=== PATIENT | male | born 1950 | race Caucasian/White ===

== ENCOUNTER 2018-01-18 06:12 | Emergency (ER) | payer MEDICARE ==
[2018-01-18] MEDS ORDERED: NS 0.9% 1000 ML* 1,000 ML IV ONE (06:38)
[2018-01-18] MEDS ORDERED: Morphine VIAL* 4 MG/ML VIAL (1 ml vial) IV ONE (06:40)
[2018-01-18] MEDS ORDERED: PROCHLORPERAZINE INJ 5 MG/ML 2 ML VIAL IV ONE (06:41)
[2018-01-18 07:07] LABS: ABS Basophils 0 10^3/ul (0-0.2); ABS Eosinophils 0 10^3/ul (0-0.6); ABS Monocytes 0.2 10^3/ul (0-0.8); ABS Neutrophils 7.4 10^3/ul (1.5-7.7); ABS Nucleated RBC 0 10^3/ul; Eosinophil % 0 % (0-6); Hematocrit 41 % (42-52); Hemoglobin 14.5 g/dl (14.0-18.0); Lymphocyte % 11.6 % (25-47); Mean Corpuscular HGB Conc 35 g/dl (31-36); Mean Corpuscular Hemoglobin 32 pg (27-31); Mean Corpuscular Volume 89 fL (80-94); Mean Platelet Volume 8.2 um3 (7.4-10.4); Nucleated Red Blood Cells % 0.1; Platelet Count 265 10^3/ul (150-450); Red Blood Count 4.57 10^6/ul (4.0-5.4); Red Cell Distribution Width 13 % (10.5-15); White Blood Count 8.6 10^3/ul (3.5-10.8)
[2018-01-18 07:18] LABS: INR 0.86 (0.77-1.02)
--- NOTE | 2018-01-18 07:25 | ED ---
Abdominal Pain/Male - HPI Summary HPI Summary: Patient here with acute onset right upper quadrant pain that started 2300 last night - woke him from sleep. Associated symptoms include nausea with vomiting and flushing alternating with chills. He reports he last ate at 2030 last night - ice cream with chocolate nibs. Prior to that was dinner which was salad with vegetables and feta cheese as well as 2 beers at 1900. He denies fever, headache, URI symptoms, chest pain, shortness of breath, numbness, tingling, weakness, urinary symptoms, diarrhea, hematochezia, dark stools. Last bowel movement was yesterday and was pretty normal for him. He does admit to a history of diverticulitis which had him hospitalized for 2 days however this resolved without residual effects. His pain at that time was in his lower abdomen. He denies abdominal surgeries in his past. Medical history is significant for melanoma over left side of neck which she describes as a stage [address] Greenfield and PCP (Rafa) annually to monitor for recurrence which she has not had. Also has h/o Dupeytran's contracture w/ correction. 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 - Pain Intensity: 10 - Allergies/Home Medications Allergies/Adverse Reactions: Allergies Allergy/AdvReac Type Severity Reaction Status Date / Time No Known Allergies Allergy Verified 01/18/18 07:27 PMH/Surg Hx/FS Hx/Imm Hx Previously Healthy: Yes Endocrine/Hematology History: Denies: Hx Anticoagulant Therapy, Hx Blood Disorders, Hx Blood Transfusions, Hx Diabetes, Hx Thyroid Disease, Hx Unexplained Bleeding, Autoimmune Disease Cardiovascular History: Denies: Hx Aneurysm, Hx Congestive Heart Failure, Hx Hypercholesterolemia, Hx Hypertension, Hx Myocardial Infarction GI History: Reports: Other GI Disorders - HX OF DIVERTITICULITIS History: Denies: Hx Kidney Infection, Hx Kidney Stones, Hx Renal Disease Musculoskeletal History: Reports: Hx Arthritis - SHOULDER Sensory History: Reports: Hx Contacts or Glasses - DRIVING Denies: Hx Hearing Aid Opthamlomology History: Reports: Hx Contacts or Glasses - DRIVING Psychiatric History: Denies: Hx Eating Disorder, Hx Depression, Hx Panic Disorder, Hx Post Traumatic Stress Disorder, Hx Inpatient Treatment, Hx Community Mental Health Tx , Hx Schizophrenia, Hx Bipolar Disorder, Hx Suicide Attempt, Hx of Violent Episodes Against Others, Hx Substance Abuse - Surgical History Surgery Procedure, Year, and Place: DEPATRONS SYNDROME LEFT HAND 2000. LEFT KNEE SCOPING 2002. TONSILLECTOMY 1954 Hx Anesthesia Reactions: No Infectious Disease History: No Infectious Disease History: Denies: Traveled Outside the [place] in Last 30 Days - Family History Known Family History: Positive: None - Social History Lives: With Family Alcohol Use: Daily Alcohol Amount: 2-3 drinks a day Hx Substance Use: No Substance Use Type: Reports: None Hx Tobacco Use: No Smoking Status (MU): Never Smoked Tobacco Review of Systems Constitutional: Negative Eyes: Negative ENT: Negative Cardiovascular: Negative Respiratory: Negative Positive: Abdominal Pain, Vomiting, Nausea. Negative: Diarrhea Genitourinary: Negative Musculoskeletal: Negative Skin: Negative Neurological: Negative Positive: Anxious - in pain All Other Systems Reviewed And Are Negative: Yes Physical Exam Triage Information Reviewed: Yes Vital Signs On Initial Exam: Initial Vitals Temp Pulse Resp BP Pulse Ox 98.1 F 78 16 161/88 99 01/18/18 06:13 01/18/18 06:13 01/18/18 06:13 01/18/18 06:13 01/18/18 06:13 Vital Signs Reviewed: Yes Appearance: Positive: Well-Appearing, Well-Nourished, Pain Distress Skin: Positive: Warm, Skin Color Reflects Adequate Perfusion, Dry Head/Face: Positive: Normal Head/Face Inspection Eyes: Positive: Normal, EOMI, Conjunctiva Clear - anicteric sclera ENT: Positive: Normal ENT inspection, Hearing grossly normal Neck: Positive: Supple, Nontender Respiratory/Lung Sounds: Positive: Clear to Auscultation, Breath Sounds Present. Negative: Rales, Rhonchi, Wheezes Cardiovascular: Positive: Normal, RRR, S1, S2. Negative: Murmur, Rub, Leg Edema Left, Leg Edema Right Abdomen Description: Positive: Guarding, McBurney's Point Tenderness Bowel Sounds: Positive: Present - high pitched Musculoskeletal: Positive: Normal, Strength/ROM Intact Neurological: Positive: Normal, Sensory/Motor Intact, Alert, Oriented to Person Place, Time, CN Intact II-III Psychiatric: Positive: Anxious Diagnostics - Vital Signs Vital Signs Temp Pulse Resp BP Pulse Ox 01/18/18 06:53 16 01/18/18 06:31 80 98 01/18/18 06:30 79 171/104 97 01/18/18 06:13 98.1 F 78 16 161/88 99 - Laboratory Lab Results: Lab Results 01/18/18 01/18/18 01/18/18 Range/Units 06:45 06:46 06:46 WBC 8.6 (3.5-10.8) 10^3/ul RBC 4.57 (4.0-5.4) 10^6/ul Hgb 14.5 (14.0-18.0) g/dl Hct 41 L (42-52) % MCV 89 (80-94) fL MCH 32 H (27-31) pg MCHC 35 (31-36) g/dl RDW 13 (10.5-15) % Plt Count 265 (150-450) 10^3/ul MPV 8.2 (7.4-10.4) um3 Neut % (Auto) 85.6 H (38-83) % Lymph % (Auto) 11.6 L (25-47) % [place] % (Auto) 2.5 (0-7) % Eos % (Auto) 0 (0-6) % Baso % (Auto) 0.3 (0-2) % Absolute Neuts (auto) 7.4 (1.5-7.7) 10^3/ul Absolute Lymphs (auto) 1.0 (1.0-4.8) 10^3/ul Absolute Monos (auto) 0.2 (0-0.8) 10^3/ul Absolute Eos (auto) 0 (0-0.6) 10^3/ul Absolute Basos (auto) 0 (0-0.2) 10^3/ul Absolute Nucleated RBC 0 10^3/ul Nucleated RBC % 0.1 INR (Anticoag Therapy) 0.86 (0.77-1.02) APTT 31.5 (26.0-36.3) seconds Blood Type O Positive Antibody Screen Pending Result Diagrams: 01/18/18 06:46 01/18/18 06:45 Lab Statement: Any lab studies that have been ordered have been reviewed, and results considered in the medical decision making process. Re-Evaluation - Re-Evaluation First Eval Change: Improved - nausea resolved and pain improved w/ morphine and compazine - still rios ab and still has RUQ pain w/ palpation Abdominal Pain Fem Course/Dx - Course Course Of Treatment: Gallbladder ultrasound reveals "cholelithiasis with mild thickening of the gallbladder wall consistent with chronic or acute cholecystitis". Patient admits he gets an upset stomach when he's had dairy in the past tries to avoid this. He did have ice cream last night and is unsure if this triggered his symptoms or not. He's not had any previously known issues with his gallbladder. Labs are unremarkable. Given his clinical presentation, general surgery was consulted. Dr. Lockwood in to see patient. UPDATE: pt reports pain has improved 90% since here. Discussed surgery now vs. observation - pt prefers the latter and will contact Dr. Lockwood should he need further assistance/surgical intervention. Also reviewed danger s/sx of when to return to ED. Pt and agree w/ plan. - Diagnoses Provider Diagnoses: Cholecystitis Discharge - Sign-Out/Discharge Documenting (check all that apply): Discharge/Admit/Transfer - Discharge Plan Condition: Stable Disposition: HOME Patient Education Materials: Cholecystitis (ED), Gallstones (ED), Low Fat Diet (ED) Referrals: Nadine Bal MD [Primary Care Provider] - Additional Instructions: You appear to have sustained a gallbladder attack also known as cholecystitis. After speaking with the surgeon, you have opted to go home today and observe your symptoms. It is encouraged that you support yourself by avoiding high fat diet - see educational information included here. If you have concerns about wanting to have your gallbladder removed, please contact Dr. Lockwood, general surgeon. If however your symptoms return or worsen, you develop fever, chills, intractable vomiting, return to the emergency department. - Billing Disposition and Condition Condition: STABLE Disposition: HOME
[2018-01-18 07:28] LABS: EGFR Non-African American 105.8 (>60)
--- NOTE | 2018-01-18 08:48 | RAD ---
INDICATION: Right upper quadrant pain. COMPARISON: Comparison is made with a prior CT of the abdomen and pelvis from July 09, 2014. TECHNIQUE: Multiple real-time images of the right upper quadrant were obtained. FINDINGS: There are small gallstones present. The gallbladder wall is slightly thickened measuring up to 0.4 cm in thickness. No pericholecystic fluid or sonographic Campos sign is present. No intra or extrahepatic ductal distention is present. The common bile duct measured 0.4 cm in diameter. The liver is normal in size without significant focal abnormality. The pancreas is obscured by overlying bowel gas. The right kidney is normal in size without evidence for hydronephrosis. IMPRESSION: CHOLELITHIASIS WITH MILD THICKENING OF THE GALLBLADDER WALL CONSISTENT WITH CHRONIC OR ACUTE CHOLECYSTITIS.
[2018-01-18 11:03] LABS: Urine Appearance Cloudy; Urine Blood Negative (Negative); Urine Color Yellow; Urine Ketones Trace (Negative); Urine Protein Negative (Negative); Urine Specific Gravity 1.017 (1.010-1.030); Urine Urobilinogen Negative (Negative)
[2018-01-18 11:23] VITALS: BP 156/89
--- NOTE | 2018-01-18 14:47 | CONS ---
CC: Dr. Nadine Bal * CONSULTATION REPORT: DATE OF CONSUL: 01/18/18 - EMERGENCY DEPT CHIEF COMPLAINT: Abdominal pain. HISTORY OF PRESENT ILLNESS: The patient is a 67-year-old male in his usual state of health, who was awaken somewhere around midnight with intense upper abdominal pain, worse on the right than on the left. He had gone to bed feeling normally. He had not eaten anything unusual. He had gone through stressful time last week. His mother . He and his siblings and his had of course not been eating normally and they had been drinking a little more than usual, but yesterday, it was pretty normal. He had dry heaves and queasiness and bloating at home. No vomiting, no belching, no diarrhea, no constipation, no blood in stool or urine, no fever or chills. No accident, injury or trauma. No antecedent illness. He has never had anything like this before. PAST MEDICAL HISTORY: Reveals no chronic medical illnesses. PAST SURGICAL HISTORY: Reveals repair of Dupuytren's contracture of the left hand and right knee meniscus. These were both many years ago. MEDICATIONS: No regular medications. ALLERGIES: No medical allergies. FAMILY HISTORY: Noncontributory. 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 He is a nonsmoker. He does drink a couple of glasses of wine every night. He keeps fairly active. They moved to [place] recently to be near their children and grandchildren. He goes to the gym and works out regularly. REVIEW OF SYSTEMS: Negative for any major cardiac, pulmonary, renal, hepatobiliary. No diabetes, thyroid or other endocrine. No major history. No kidney stones or bladder infections. GI history reveals a bout of diverticulitis in the past that responded to 2 days of antibiotics in the hospital and he has been fine ever since. He does follow with his primary physician and is up-to-date with colonoscopies. He has not had any unusual bleeding or anesthesia reactions. No neuromuscular or psych issues. PHYSICAL EXAM: On physical exam, he is a well-developed, well-nourished male consistent with stated age. Skin is warm and well perfused. He is not diaphoretic. He is not jaundiced. Vital signs show temp 99.2, pulse 92 and regular, respirations 17 and unlabored, blood pressure 156/89, O2 saturation 95% . He is 5 feet 9 inches and 180 pounds with a BMI of 27. Lungs are clear bilaterally with good aeration. Heart is regular without any abnormal sounds. Abdomen is soft, tender in the right subcostal region, maybe a trace Campos's sign. No guarding. No rebound tenderness. No peritonitis. No palpable masses or hernias. The left side of the abdomen and lower abdomen were all perfectly benign on exam. Extremities are well perfused and without edema. DIAGNOSTIC STUDIES/LAB DATA: Laboratory studies reveal white blood count normal at 8600, hemoglobin 14.5, platelets 265. INR 0.86. His electrolytes and renal function are normal. Liver chemistries normal. Lipase normal. C- reactive protein normal. Urinalysis normal. He had an ultrasound of the gallbladder, which shows cholelithiasis and maybe slight thickening of the gallbladder wall. No acute inflammatory changes. IMPRESSION: This 67-year-old male with signs and symptoms consistent with cholelithiasis and biliary colic. At present, he is feeling quite a bit better than when he initially came in. His pain is down to a 2 to 3 level. He is not having any nausea or queasiness. He would like to try to go home and manage this as an outpatient. We had an extensive discussion about the role of laparoscopic cholecystectomy. The pros and cons of proceeding with surgery after first attack, the possibility of this progressing to additional attacks in the future. He and his understand all of this, and at present, they really do not want to aviles into any surgery. They would like to try to treat it with dietary measures , but if he has future attacks, he understands that he should give me a call, and we will have to revisit the issue as to whether to plan surgery. [id number]/[facility] #: [id number] KADE
== END 2018-01-18 11:22 | disposition home or self-care (01) ==
LOC: ED 06:12
DX: K81.9 Cholecystitis, unspecified (principal)
CPT/HCPCS: 36415; 76705; 80053; 81003; 83605; 83690; 83735; 85025; 85610; 85730; 86140; 86850; 86900; 86901; 96360; 96361; 96374; 96375; 96376; 99282; J0780; J2270

== ENCOUNTER 2018-03-20 06:19 | Inpatient (IN) | payer MEDICARE ==
[2018-03-20] MEDS ORDERED: Ondansetron INJ* 2 MG/ML VIAL IV ONE (06:44)
[2018-03-20] MEDS ORDERED: Morphine VIAL* 4 MG/ML VIAL (1 ml vial) IV ONE ×3 (06:46→11:16)
--- NOTE | 2018-03-20 06:50 | ED ---
Abdominal Pain/Male - HPI Summary HPI Summary: Patient presents with abrupt onset right upper quadrant pain radiating to the right flank starting at 3 AM this morning. This has been spreading throughout his ab since. This is associated with nausea and an episode of vomiting at 6 AM (reports he vomited up food he had eaten at 16:00). Currently, he is a 7-8 out of 10 pain and cannot get comfortable. Currently reports having chills. Denies headache, chest pain, shortness of breath, neck pain or stiffness, respiratory symptoms, urinary symptoms, back pain, lower extremity numbness tingling weakness or swelling. He was seen in January with similar symptoms and diagnosed with a thick gallbladder wall suspicious for acute cholecystitis. He discussed his options with Dr. Lockwood and since he felt completely better w/ pain control, he opted to follow up outpatient. He had no meds upon d/c and returned to regular eating other than the fact he's been following a low-fat/ high fiber diet. Admits to drinking some beers last night which is not out of the norm for him but did have more beers than usual over the 18 of March ( similar pattern to last visit). Otherwise healthy without any allergies. Also denies trauma to the area and no new medications, etc. He is urinating well. He admits his ab is sore but thinks part of it may be from all the exercise he' s done lately (ie. sit ups, swimming, etc) and reports he tends to tense is ab when he's in pain/worried about ab issues. Last PO intake: 20:00 - eggs w/ coconut oil (new for him) Dental crowns present Has had agitation with anesthesia in the past - no respiratory issues of which he or are aware No bleeding d/o, no h/o cardiac dz Snores but no documented or studied sleep apnea - History of Current Complaint Chief Complaint: EDAbdPain Stated Complaint: ABD PAIN Time Seen by Provider: 03/20/18 06:38 Hx Obtained From: Patient, Family/Nurse [facility] - Pain Intensity: 8 - Allergies/Home Medications Allergies/Adverse Reactions: Allergies Allergy/AdvReac Type Severity Reaction Status Date / Time No Known Allergies Allergy Verified 01/18/18 07:27 PMH/Surg Hx/FS Hx/Imm Hx Previously Healthy: Yes Endocrine/Hematology History: Denies: Hx Anticoagulant Therapy, Hx Blood Disorders, Hx Blood Transfusions, Hx Diabetes, Hx Thyroid Disease, Hx Unexplained Bleeding Cardiovascular History: Denies: Hx Aneurysm, Hx Congestive Heart Failure, Hx Hypercholesterolemia, Hx Hypertension, Hx Myocardial Infarction GI History: Reports: Hx Gall Bladder Disease - thickened GB wall 01/2018, Other GI Disorders - HX OF DIVERTITICULITIS History: Denies: Hx Kidney Infection, Hx Kidney Stones, Hx Renal Disease Musculoskeletal History: Reports: Hx Arthritis - SHOULDER Sensory History: Reports: Hx Contacts or Glasses - DRIVING Denies: Hx Hearing Aid Opthamlomology History: Reports: Hx Contacts or Glasses - DRIVING Psychiatric History: Denies: Hx Eating Disorder, Hx Depression, Hx Panic Disorder, Hx Post Traumatic Stress Disorder, Hx Inpatient Treatment, Hx Community Mental Health Tx , Hx Schizophrenia, Hx Bipolar Disorder, Hx Suicide Attempt, Hx of Violent Episodes Against Others, Hx Substance Abuse - Surgical History Surgery Procedure, Year, and Place: DEPATRONS SYNDROME LEFT HAND 2000. LEFT KNEE SCOPING 2002. TONSILLECTOMY 1954 Hx Anesthesia Reactions: No Infectious Disease History: No Infectious Disease History: Denies: Traveled Outside the [place] in Last 30 Days - Family History Known Family History: Positive: None - Social History Lives: With Family Alcohol Use: Daily Alcohol Amount: 2-3 drinks a day Hx Substance Use: No Substance Use Type: Reports: None Hx Tobacco Use: No Smoking Status (MU): Never Smoked Tobacco Review of Systems Positive: Chills. Negative: Fever, Fatigue Eyes: Negative ENT: Negative Cardiovascular: Negative Respiratory: Negative Positive: Abdominal Pain, Vomiting, Diarrhea, Nausea Genitourinary: Negative Musculoskeletal: Negative Skin: Other - small red bump on Lt forearm - possible bug bite? just noticed now Neurological: Negative Positive: Anxious All Other Systems Reviewed And Are Negative: Yes Physical Exam Triage Information Reviewed: Yes Vital Signs On Initial Exam: Initial Vitals Temp Pulse Resp BP Pulse Ox 96.9 F 62 22 173/114 99 03/20/18 06:20 03/20/18 06:20 03/20/18 06:20 03/20/18 06:20 03/20/18 06:20 Vital Signs Reviewed: Yes Appearance: Positive: Well-Appearing, Well-Nourished, Pain Distress - pt is writhing in bed in pain - grimacing w/ eyes closed Skin: Positive: Warm, Skin Color Reflects Adequate Perfusion - 2-3mm erythematous papule on Lt forearm - no EM rash, no surrounding erythema or streaking, no edema, Dry Head/Face: Positive: Normal Head/Face Inspection Eyes: Positive: Normal, EOMI, ALEJA, Conjunctiva Clear - anicteric sclera ENT: Positive: Hearing grossly normal, Pharynx normal - mucosa somewhat dry Neck: Positive: Supple, Nontender, No Lymphadenopathy Respiratory/Lung Sounds: Positive: Clear to Auscultation, Breath Sounds Present. Negative: Rales, Rhonchi, Wheezes Cardiovascular: Positive: Normal, RRR, Pulses are Symmetrical in both Upper and Lower Extremities, S1, S2. Negative: Murmur, Rub, Leg Edema Left, Leg Edema Right Abdomen Description: Positive: Guarding - will recheck after pain medication administration Bowel Sounds: Positive: Absent Musculoskeletal: Positive: Normal, Strength/ROM Intact Neurological: Positive: Normal, Sensory/Motor Intact, Alert, Oriented to Person Place, Time, CN Intact II-III Psychiatric: Positive: Anxious - in pain Diagnostics - Vital Signs Vital Signs Temp Pulse Resp BP Pulse Ox 03/20/18 06:20 96.9 F 62 22 173/114 99 - Laboratory Result Diagrams: 03/20/18 06:55 03/20/18 06:55 Lab Statement: Any lab studies that have been ordered have been reviewed, and results considered in the medical decision making process. Re-Evaluation - Re-Evaluation First Eval Change: Improved - 7-8/10 to 5-6/10 - still in pain and can't get comfortable - possibly some component of anxiety Second Eval Change: Improved - reports pain has improved from a 5-6/10 to a 4/10 w/ additional 2mg of morphine (pt could not tolerate more d/t lightheadedness). He wanted to try to go home, so agreed to trial sips of PO fluids which he did not tolerate well (triggered pain). He continues to gaurd his abdomen. Pain is now focal to the RUQ - upper ab/epigastric pain has resolved. Reports "I feel like I was punched in the ribs on the Rt". Nausea resolved but worse w/ PO trial. Abdominal Pain Fem Course/Dx - Course Course Of Treatment: Pt presents w/ abrupt onset RUQ pain radiating into the back at 3am last night. Concern for GB issues - labs and U/S ordered. Labs are unremarkable except for elevated Lactic acid 2.6 which could be from him tensing for hours as his CRP, WBC's are WNL. He was initially given LR as I suspected he may need surgery but switched to NS w/ elevated lactic acid level. His initial exam was difficult as he was in so much pain and guarding. Repeat exam reveals somewhat reduced pain but still gaurding. Pt admits he had pain w/ U/S exam as well despite comments of (-) Campos sign. Ordered additional morphine for pain control and upon rechecking pt, he reports 4/10 pain - tolerable and would like to try going home. Road test with PO liquids (sips of water) did not go well - he admits to worsening of pain again and mild return of nausea. Although pt denies CP, ECG was ordered as his pain radiates into epigastric region and this is his 2nd visit to ED w/ these sx. Also early anticipation of possible surgery in a 68 y.o. males. ECG NSR w/o ST evelations. Vitals also appear normal. After 3rd evaluation and pt continues to gaurd w/ minimal relief of pain, discussed w/ Dr. Paez who agrees general surgery consult is warranted. Spoke w/ Olegario, FLO[employer]ER, who reports he will pass message along to Dr. Hanley that pt needs consult. Pt will remain NPO and receive maintanence fluids in the meantime. Dr. Hanley returned called - requesting HIDA CCK - ordered. NOE Mayo to see pt - she agrees to admit for obs and will review HIDA CCK results w/ pt. Will switch pain med to dilaudid as morphine may be triggering/exacerbating spasm of SOD. Pt stable at time of transition of care. - Diagnoses Provider Diagnoses: RUQ abdominal pain Discharge - Sign-Out/Discharge Documenting (check all that apply): Discharge/Admit/Transfer - Discharge Plan Condition: Stable Disposition: ADMITTED TO [facility] - Billing Disposition and Condition Condition: STABLE Disposition: Admitted to [facility]
[2018-03-20 07:02] LABS: ABS Basophils 0 10^3/ul (0-0.2); ABS Eosinophils 0 10^3/ul (0-0.6); ABS Lymphocytes 1.5 10^3/ul (1.0-4.8); ABS Monocytes 0.4 10^3/ul (0-0.8); ABS Neutrophils 7.6 10^3/ul (1.5-7.7); ABS Nucleated RBC 0 10^3/ul; Eosinophil % 0.3 % (0-6); Hematocrit 43 % (42-52); Hemoglobin 14.9 g/dl (14.0-18.0); Lymphocyte % 15.6 % (25-47); Mean Corpuscular HGB Conc 35 g/dl (31-36); Mean Corpuscular Hemoglobin 32 pg (27-31); Mean Corpuscular Volume 91 fL (80-94); Mean Platelet Volume 9.4 um3 (7.4-10.4); Nucleated Red Blood Cells % 0; Platelet Count 241 10^3/ul (150-450); Red Cell Distribution Width 13 % (10.5-15); White Blood Count 9.6 10^3/ul (3.5-10.8)
[2018-03-20 07:10] LABS: INR 0.91 (0.77-1.02)
[2018-03-20 07:30] LABS: EGFR Non-African American 82.1 (>60)
[2018-03-20] MEDS ORDERED: NS 0.9% 1000 ML* 2,000 ML IV ONE (07:41)
--- NOTE | 2018-03-20 07:49 | RAD ---
HISTORY: RUQ pain w/ N/V/D - h/o GB thickening COMPARISONS: January 18, 2018 TECHNIQUE: Multiple transverse and longitudinal ultrasound images were obtained of the right upper quadrant of the abdomen using grayscale and color Doppler imaging. FINDINGS: LIVER: The liver is normal in shape, size, contour, and echogenicity. There are no focal parenchymal masses. There is normal hepatopedal flow of the portal vein on Doppler imaging. BILIARY TREE: There is no intrahepatic or extrahepatic biliary dilatation. The common duct measures 0.5 cm. GALLBLADDER: There is mild gallbladder wall thickening. This is stable. There is sludge within the gallbladder. There is no pericholecystic fluid or sonographic Campos sign. PANCREAS: The pancreas is obscured by overlying bowel gas. RIGHT KIDNEY: The right kidney is normal in shape, size, contour, and echogenicity. There is no hydronephrosis or nephrolithiasis. The right kidney measures 12 x 5.2 x 5.1 cm. AORTA AND IVC: Evaluation of the aorta is limited secondary to bowel gas. The IVC is unremarkable. FLUID: There are no pleural effusions. There is no free fluid within the hepatorenal recess. OTHER FINDINGS: None. IMPRESSION: STABLE MILD GALLBLADDER WALL THICKENING.
[2018-03-20 09:42] LABS: Urine Appearance Clear; Urine Blood Negative (Negative); Urine Color Yellow; Urine Ketones Trace (Negative); Urine Protein Negative (Negative); Urine Specific Gravity 1.014 (1.010-1.030); Urine Urobilinogen Negative (Negative)
[2018-03-20] MEDS: NS 0.9% 1000 ML* 1,000 ML IV SCH ×2 (10:52→18:45)
[2018-03-20] MEDS ORDERED: HYDROmorphone INJ* 2 MG/ML CARPUJECT SYRINGE IV SLOW PU ONE (13:52)
[2018-03-20] MEDS ORDERED: HYDROmorphone INJ* 1 MG/ML CARPUJECT SYRINGE IV PRN (13:53)
[2018-03-20] MEDS ORDERED: Ondansetron INJ* 2 MG/ML VIAL IV PRN (13:53)
[2018-03-20] MEDS ORDERED: ZOSYN 3.375 GM IVPB ONE ×2 (15:00)
[2018-03-20] MEDS ORDERED: Zosyn per Pharmacy* NOTE FOLLOW UP SCH (15:00)
[2018-03-20] MEDS ORDERED: Zosyn 3.375 GM IV - ED ONCE IVPB ONE ×2 (15:00)
--- NOTE | 2018-03-20 16:22 | HP ---
CC: Dr. Nadine Bal * ADMISSION HISTORY AND PHYSICAL: DATE OF ADMISSION: This patient was seen at [facility] Emergency Department on 03/20/18. ATTENDING PHYSICIAN: Dr. Felicita Hanley.* (DICTATED BY CHRISTIE LAMAR NP) CHIEF COMPLAINT: Right upper quadrant abdominal pain. HISTORY OF PRESENT ILLNESS: The patient is a 68-year-old male who presented to the emergency department with the abrupt onset of right upper quadrant abdominal pain that radiated to the back starting at 3:00 this morning. This was associated with nausea and an episode of vomiting at 6 a.m. and he reports that he vomited up food that he had eaten around 4 p.m. yesterday. He reported his pain at 8/10 and was unable to get comfortable. He reported drinking more beer than usual on 03/18/18 and then last evening, he made scrambled eggs with coconut oil, which is a new oil for him. He denied any fever, but felt chilled ; he denied any change in the color of urine or stool. He was seen in January of this year with similar symptoms and diagnosed with mildly thickened gallbladder wall and cholelithiasis and discussed options with Dr. Lockwood. The patient at that time had resolution of his abdominal pain and opted to follow up as an outpatient. He has been on a low-fat and high-fiber diet. He denies any trauma to the abdomen and is not on any new medications. Gallbladder ultrasound today revealed stable and mild gallbladder wall thickening and sludge as compared to 01/18/18 gallbladder ultrasound, which showed cholelithiasis with mild thickening of the gallbladder wall consistent with chronic or acute cholelithiasis. Dr. Hanley has recommended HIDA scan, which the patient is currently undergoing. Currently, he reports his pain at 5/10 and denies nausea and has not had subsequent vomiting. He denies any current chills and remains afebrile. His white count was within normal limits at 9.6 and his liver profile was within normal limits. The only abnormal lab was elevated lactic acid at 2.6 and his IV fluid was changed from lactated Ringer's to normal saline. PAST MEDICAL HISTORY: No chronic medical illnesses. PAST SURGICAL HISTORY: Repair of Dupuytren's contracture of the left hand, right knee meniscectomy and tonsillectomy. MEDICATIONS: No routine medications. ALLERGIES: No medical allergies. FAMILY HISTORY: No known anesthesia complications, bleeding tendencies or clotting disorders. 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 He is a nonsmoker. He does drink beer and wine. He is active and exercises routinely. They moved to [place] in the spring of this year to be near their children and grandchildren. REVIEW OF SYSTEMS: Negative for any major cardiac, pulmonary, renal or hepatobiliary disease. No diabetes or thyroid disease. No genitourinary history. GI history reveals a bout of diverticulitis in the past that responded to antibiotics without recurrence. He does follow with his primary care physician, Dr. Nadine Bal and is up-to-date with colonoscopies. He has never had any unusual bleeding or required a blood transfusion; he denies any history of deep vein thrombosis or pulmonary embolism and denies any previous anesthesia complications. PHYSICAL EXAMINATION GENERAL SURVEY: The patient is a 68-year-old male, well developed, well nourished, complaining of right upper quadrant abdominal pain rated at a 5, but in no acute distress. VITAL SIGNS: Height 5 feet 9 inches, weight 170 pounds, body mass index 25. Blood pressure initially 116/75, but with pain 150/80; heart rate in the 70s; respiratory rate 18; temperature 96.9. HEENT: Benign. NECK: Supple. No cervical lymphadenopathy. LUNGS: Breath sounds bilaterally clear and equal. HEART: Regular rate and rhythm. No murmurs or rubs appreciated. ABDOMEN: Active bowel sounds, nondistended. Tender over the epigastrium and right upper quadrant with mild guarding. Negative Campos's sign. No obvious masses or organomegaly or ventral hernia, but exam is limited by the patient's pain. GENITALIA: Exam deferred. RECTAL: Exam deferred. BACK: No CVA tenderness. EXTREMITIES: Warm without edema or skin ulceration. NEUROLOGIC: Alert and oriented x3. SKIN: Warm, dry, intact, anicteric. IMPRESSION: Persistent right upper quadrant abdominal pain, possible biliary colic, possible acute cholecystitis. PLAN: Admit for observation overnight, the patient will be n.p.o. and receive IV fluids and pain management. We will repeat his CBC and comprehensive metabolic profile tomorrow morning. We will review the HIDA scan when it is available. He will be started on Zosyn and Dr. Hanley will make further recommendations. TIME SPENT: 60 minutes with greater than 50% in fsvi-qh-dift history taking and counseling. CHRISTIE LAMAR, MOLDING ENGINEER [id number]/[facility] #: [id number] KADE
--- NOTE | 2018-03-20 16:43 | RAD ---
Indication: RIGHT upper quadrant pain. Nausea, vomiting, diarrhea. Sludge in gallbladder on ultrasound. Comparison: March 20, 2018 ultrasound Technique: 6.150 mCi of Tc-99m Choletec was injected IV. Serial anterior images of the abdomen were obtained immediately following radiopharmaceutical administration to 60 minutes. Delayed images were obtained at 2 and 3 hours post radiopharmaceutical administration. Report: There is normal hepatic uptake and excretion of the radiopharmaceutical with the common bile duct visualized approximate 15 minutes following injection. Bowel activity is also visualized at approximately 15 minutes. The gallbladder is not visualized out to 3 hours post radiopharmaceutical administration consistent with cystic duct obstruction. IMPRESSION: #. The gallbladder is not visualized out to 3 hours post radiopharmaceutical administration consistent with cystic duct obstruction. #. Patent common bile duct.
[2018-03-20] MEDS: HYDROmorphone INJ* 0.5 MG/0.5 ML SYRINGE IV PRN ×2 (17:44→22:02)
[2018-03-20] MEDS: ZOSYN 3.375 GM Q8H per EXTENDED INFUSION IVPB SCH ×2 (20:25)
[2018-03-21] MEDS: HYDROmorphone INJ* 0.5 MG/0.5 ML SYRINGE IV PRN (02:56)
[2018-03-21] MEDS: NS 0.9% 1000 ML* 1,000 ML IV SCH ×4 (02:56→20:38)
[2018-03-21] MEDS: ZOSYN 3.375 GM Q8H per EXTENDED INFUSION IVPB SCH ×6 (03:50→20:39)
[2018-03-21 06:26] LABS: ABS Basophils 0 10^3/ul (0-0.2); ABS Eosinophils 0 10^3/ul (0-0.6); ABS Lymphocytes 1.5 10^3/ul (1.0-4.8); ABS Neutrophils 10.3 10^3/ul (1.5-7.7); ABS Nucleated RBC 0 10^3/ul; Eosinophil % 0.3 % (0-6); Hematocrit 36 % (42-52); Hemoglobin 12.4 g/dl (14.0-18.0); Lymphocyte % 11.9 % (25-47); Mean Corpuscular HGB Conc 35 g/dl (31-36); Mean Corpuscular Hemoglobin 32 pg (27-31); Mean Corpuscular Volume 90 fL (80-94); Mean Platelet Volume 8.9 um3 (7.4-10.4); Nucleated Red Blood Cells % 0; Platelet Count 208 10^3/ul (150-450); Red Blood Count 3.93 10^6/ul (4.00-5.40); Red Cell Distribution Width 13 % (10.5-15)
[2018-03-21 06:48] LABS: EGFR Non-African American 110.7 (>60)
--- NOTE | 2018-03-21 07:13 | PN ---
Progress Note - Progress Note Date of Service: 03/21/18 Note: Surgery Mr. Nagy c/o being "tired", but says his pain is better this morning after pain med at 3 AM. Vital Signs 03/20/18 03/20/18 03/20/18 07:38 08:00 08:08 Temperature Pulse Rate 63 72 68 Respiratory 14 16 21 Rate Blood Pressure 146/88 131/73 (mmHg) O2 Sat by Pulse 100 99 99 Oximetry 03/20/18 03/20/18 03/20/18 08:37 08:38 09:00 Temperature Pulse Rate 72 88 Respiratory 18 16 22 Rate Blood Pressure 147/92 (mmHg) O2 Sat by Pulse 99 96 Oximetry 03/20/18 03/20/18 03/20/18 09:08 09:38 10:00 Temperature Pulse Rate 92 71 Respiratory 17 16 16 Rate Blood Pressure 148/84 148/78 (mmHg) O2 Sat by Pulse 91 100 Oximetry 03/20/18 03/20/18 03/20/18 10:08 10:39 11:00 Temperature Pulse Rate 78 72 Respiratory 20 16 18 Rate Blood Pressure 152/85 116/75 (mmHg) O2 Sat by Pulse 97 95 Oximetry 03/20/18 03/20/18 03/20/18 11:08 11:33 11:38 Temperature Pulse Rate 70 76 Respiratory 16 18 21 Rate Blood Pressure 151/87 150/81 (mmHg) O2 Sat by Pulse 98 96 Oximetry 03/20/18 03/20/18 03/20/18 13:27 13:28 13:39 Temperature Pulse Rate 78 79 Respiratory 11 17 18 Rate Blood Pressure 147/87 140/106 (mmHg) O2 Sat by Pulse 95 97 Oximetry 03/20/18 03/20/18 03/20/18 14:00 15:09 15:17 Temperature 0 F 98.6 F Pulse Rate 81 78 90 Respiratory 18 18 16 Rate Blood Pressure 140/106 141/67 (mmHg) O2 Sat by Pulse 96 97 97 Oximetry 03/20/18 03/20/18 03/20/18 15:22 17:44 19:10 Temperature 98.6 F 98.4 F Pulse Rate 90 81 Respiratory 16 20 16 Rate Blood Pressure 141/67 129/69 (mmHg) O2 Sat by Pulse 97 96 Oximetry 03/20/18 03/20/18 03/20/18 20:24 20:25 22:02 Temperature Pulse Rate Respiratory 18 18 18 Rate Blood Pressure (mmHg) O2 Sat by Pulse Oximetry 03/20/18 03/20/18 03/21/18 23:19 23:39 02:56 Temperature 99.1 F Pulse Rate 76 Respiratory 16 16 20 Rate Blood Pressure 129/60 (mmHg) O2 Sat by Pulse 96 Oximetry 03/21/18 03/21/18 03:51 03:55 Temperature 98.3 F Pulse Rate 70 Respiratory 16 16 Rate Blood Pressure 126/59 (mmHg) O2 Sat by Pulse 95 Oximetry Abd: good BS, distended, non-tender. Laboratory Results - last 24 hr 03/20/18 03/20/18 03/20/18 06:55 06:55 06:55 WBC RBC Hgb Hct MCV MCH MCHC RDW Plt Count MPV Neut % (Auto) Lymph % (Auto) [place] % (Auto) Eos % (Auto) Baso % (Auto) Absolute Neuts (auto) Absolute Lymphs (auto) Absolute Monos (auto) Absolute Eos (auto) Absolute Basos (auto) Absolute Nucleated RBC Nucleated RBC % INR (Anticoag Therapy) 0.91 APTT 28.6 Sodium 140 Potassium 4.1 Chloride 107 Carbon Dioxide 22 Anion Gap 11 BUN 13 Creatinine 0.92 Est GFR ( Amer) 99.3 Est GFR (Non-Af Amer) 82.1 BUN/Creatinine Ratio 14.1 Glucose 146 H Lactic Acid 2.6 H* Calcium 9.5 Magnesium 1.9 Total Bilirubin 0.50 AST 26 ALT 27 Alkaline Phosphatase 45 C-Reactive Protein 1.36 Total Protein 7.3 Albumin 4.5 Globulin 2.8 Albumin/Globulin Ratio 1.6 Amylase 32 Lipase 17 Urine Color Urine Appearance Urine pH Ur Specific [place] Urine Protein Urine Ketones Urine Blood Urine Nitrate Urine Bilirubin Urine Urobilinogen Ur Leukocyte Esterase Urine Glucose 03/20/18 03/21/18 03/21/18 09:25 06:09 06:09 WBC 13.0 H RBC 3.93 L Hgb 12.4 L Hct 36 L MCV 90 MCH 32 H MCHC 35 RDW 13 Plt Count 208 MPV 8.9 Neut % (Auto) 79.7 Lymph % (Auto) 11.9 L [place] % (Auto) 7.9 H Eos % (Auto) 0.3 Baso % (Auto) 0.2 Absolute Neuts (auto) 10.3 H Absolute Lymphs (auto) 1.5 Absolute Monos (auto) 1.0 H Absolute Eos (auto) 0 Absolute Basos (auto) 0 Absolute Nucleated RBC 0 Nucleated RBC % 0 INR (Anticoag Therapy) APTT Sodium 139 Potassium 3.6 Chloride 108 Carbon Dioxide 24 Anion Gap 7 BUN 9 Creatinine 0.71 Est GFR ( Amer) 133.9 Est GFR (Non-Af Amer) 110.7 BUN/Creatinine Ratio 12.7 Glucose 113 H Lactic Acid Calcium 8.1 L Magnesium Total Bilirubin 1.50 H AST 24 ALT 29 Alkaline Phosphatase 40 C-Reactive Protein Total Protein 5.6 L Albumin 3.4 Globulin 2.2 Albumin/Globulin Ratio 1.5 Amylase Lipase < 10 L Urine Color Yellow Urine Appearance Clear Urine pH 5.0 Ur Specific [place] 1.014 Urine Protein Negative Urine Ketones Trace A Urine Blood Negative Urine Nitrate Negative Urine Bilirubin Negative Urine Urobilinogen Negative Ur Leukocyte Esterase Negative Urine Glucose Negative A/P: Despite feeling better, Mr. Nagy's labs reflect worsening of his gall bladder even though he has been on abx. Will plan to go to OR for laparoscopic cholecystectomy today. I discussed the nature of surgery its risks, benefits, and alternatives. He understands and agrees to proceed. Adriana
[2018-03-21] MEDS ORDERED: Bupivacaine 0.25% W/EPI* 10 ML SDV ONE (07:59)
[2018-03-21] MEDS ORDERED: Midazolam* 1 MG/ML 2 ML VIAL (2 MG) ONE (08:23)
[2018-03-21] MEDS ORDERED: fentaNYL* 50 MCG/ML 2 ML VIAL (100 MCG VIAL) ONE ×2 (08:23→09:53)
[2018-03-21] MEDS ORDERED: Buffered Lidocaine 0.9% SYRIN* 5 ML/SYR SYRINGE INTRADERM ONE (08:27)
[2018-03-21] MEDS ORDERED: PROCHLORPERAZINE INJ 5 MG/ML 2 ML VIAL IV PRN (08:28)
[2018-03-21] MEDS ORDERED: Naloxone* 0.4 MG/ML 1 ML VIAL IV PRN (08:28)
[2018-03-21] MEDS ORDERED: fentaNYL* 50 MCG/ML 2 ML VIAL (100 MCG VIAL) IV PRN (08:28)
[2018-03-21] MEDS ORDERED: DiMENhydriNATE IV* 50 MG/ML VIAL IV PUSH PRN (08:28)
[2018-03-21] MEDS ORDERED: Acetaminophen TAB* 325 MG PO PRN (08:28)
[2018-03-21] MEDS ORDERED: HYDROcodone/ACETAMIN 5-325 MG* 1 TAB PO PRN (08:28)
[2018-03-21] MEDS ORDERED: Propofol* 10 MG/ML 20 ML BTL IV PUSH ONE (08:57)
[2018-03-21] MEDS ORDERED: Famotidine IV* 10 MG/ML 2 ML (20 mg) ONE (08:57)
[2018-03-21] MEDS ORDERED: Rocuronium* 10 MG/ML VIAL ONE (08:57)
[2018-03-21] MEDS ORDERED: Dexamethasone IV* 4 MG/ML 1 ML (4 MG) ONE (08:57)
[2018-03-21] MEDS ORDERED: Ketorolac INJ* 30 MG/ML 1 ML VIAL ONE (10:09)
--- NOTE | 2018-03-21 10:26 | BRIEFOPN ---
Brief Operative Note - Surgery Procedures: OPERATIVE REPORT PRE-OP: Acute cholecystitis POST-OP: Acute acalculous cholecystitis PROCEDURE: Laparoscopic cholecystectomy SURGEON: MD Ortega ANESTHESIA:Local with General, Dr. Cornejo ASST: Rubi Hanley MD IVF: Oneliter of crystalloid EBL:min SPECIMEN:gallbladder DRAIN: none WOUND CLASS: 4 COMPLICATIONS: none TO PACU
[2018-03-21] MEDS ORDERED: oxyCODONE/Acetamin 5/325 MG* TAB PO PRN (10:29)
[2018-03-21] MEDS ORDERED: Ketorolac INJ* 30 MG/ML 1 ML VIAL IV PUSH PRN (10:29)
[2018-03-21] MEDS ORDERED: Ondansetron ODT TAB* 4 MG SL PRN (10:30)
[2018-03-21] MEDS ORDERED: Neostigmine Methylsulfate* 1 MG/ML 10 ML VIAL (1 mg/ml) ONE (10:30)
[2018-03-21] MEDS ORDERED: Ondansetron INJ* 2 MG/ML VIAL ONE (10:49)
--- NOTE | 2018-03-21 12:22 | OP ---
CC: [facility]; Dr. Nadine Bal, Primary Medicine OPERATIVE REPORT: DATE OF OPERATION: 03/21/18 DATE OF : 52 SURGEON: Mendoza Vivas MD CHARGING CRANE OPERATOR: Felicita hernandez MD ANESTHESIOLOGIST: Dr. Cornejo. ANESTHESIA: General with local. PRE-OP DIAGNOSIS: Acute cholecystitis. POST-OP DIAGNOSIS: Acute acalculous cholecystitis. OPERATIVE PROCEDURE: Laparoscopic cholecystectomy. ESTIMATED BLOOD LOSS: Minimal. IV FLUIDS: 1.5 L crystalloid. SPECIMEN: Gallbladder. WOUND CLASSIFICATION: IV. DRAINS: None. COMPLICATIONS: None. FINDINGS: Acute acalculous cholecystitis. BRIEF HISTORY: Mr. Larry Nagy is a 68-year-old gentleman who presented to the emergency room with almost 24 hours of severe right upper quadrant abdominal pain of a rather sudden onset. He had an ep isode several months ago and was felt to have small gallstones, but decided not to proceed with a cho lecystectomy. He had been doing well until this second episode. An ultrasound showed a thickened gallbladder wall with small biliary sludge, but no stones and had a normal white blood cell count. He underwent a HIDA scan, which showed nonfilling of the gallbladder consistent with cystic duct obstruction and cholecystitis. He was admitted and was started on IV antibiotics. His white blood cell count is elevated overnight and he is now to be taken to the operating room for a cholecystectomy today for acute cholecystitis. The procedure was discussed with the patient and the risk of, but not limited bleeding, infection, in traabdominal abscesses formation, injury to peritoneal and retroperitoneal structures, common bile du ct injury requiring further surgical reconstruction, abscess formation, possibility of an open proced ure, the risk of general anesthesia, deep vein thrombosis and pulmonary embolism, hospital stay and r ecovery times and activity restrictions were all discussed. DESCRIPTION OF PROCEDURE: Written informed consent was obtained, the abdomen was marked with indelib le ink and preoperative antibiotics were administered. The patient was taken to the operating room a nd placed in the supine position. Sequential compression devices and a warming blanket were applied. General anesthesia was administered. The abdomen was prepped and draped in usual sterile fashion. A time-out verification was completed. Initially, a small transverse incision just above the umbilicus in the midline was made and the perit cool cavity was entered under direct vision. A 12 mm blunt port was inserted and the abdomen was in sufflated to 15 mmHg. Under direct vision, an 11 mm epigastric port was placed and two 5 mm ports were placed in the right side of the abdominal wall. The gallbladder was identified. It was thick walled, edematous and greenish- grayish in color. Ther e was omentum adherent to it and there was pericholecystic fluid. All of these were consistent with acute calculous cholecystitis. The liver appeared to be unremarkable. Upon grasping the gallbladder, there was rent made in the top of the gallbladder with drainage of thi ck bilious fluid. There were no stones noted in the gallbladder itself. We were able to grasp the g allbladder at this tear, but it should be noted that there was several smaller tears made in the gall bladder throughout the case with spillage of bile, but no gallstones. Once we were able to elevate the gallbladder up over the liver bed and remove the omentum down into t he infundibular area, we were able to commence with dissection along the infundibulum medial and late rally and a thickened edematous rind of peritoneum was taken down. There was some hypervascularity r equiring some cautery of smaller vessels, but the dissection proceeded to identify the cystic duct an d artery as they entered the gallbladder. The cystic would appear to be of expected and normal calib er. I continued to remove a considerable portion of the inferior part of the gallbladder off the liver be d using critical view technique to assure myself of these 2 structures. Once these structures were identified and confirmed, the cystic duct and artery were doubly clipped a nd divided. Using the cautery and the suction device, the gallbladder was removed from the liver bed . There was some bleeding from the liver bed due to the adherence of the gallbladder as well as infl ammation and this was controlled with electrocautery. The gallbladder was replaced in an EndoCatch bag and brought out through the epigastric incision. I then proceeded to irrigate the right upper quadrant with 2.5 to 3 L of saline until this was clear. Hemostasis was assured. There was no evidence of bile leak. I did not believe that a drain was needed. All ports were then removed under direct vision of the camera. There was no abdominal wall bleeding. The umbilical fascia was closed with interrupted 0 Vicryl suture. The skin at all 4 incisions was approximated with subcuticular 4-0 Vicryl suture. Steri-Strips were applied. The patient tolerated the procedure well and was taken to the recovery room in stable condition. [id number]/[facility] #: [id number]
[2018-03-22] MEDS: NS 0.9% 1000 ML* 1,000 ML IV SCH (04:30)
[2018-03-22] MEDS: ZOSYN 3.375 GM Q8H per EXTENDED INFUSION IVPB SCH ×2 (04:31)
--- NOTE | 2018-03-22 08:54 | PN ---
Progress Note - Progress Note Date of Service: 03/22/18 SOAP: Subjective: Doing well -slept well overnight Tolerating po Pain adequately controlled Objective: Temp Pulse Resp BP Pulse Ox 98.4 F 85 18 135/67 96 03/22/18 03:24 03/22/18 03:24 03/21/18 23:07 03/22/18 03:24 03/22/18 03:24 Intake & Output 03/20/18 03/21/18 03/22/18 03/23/18 06:59 06:59 06:59 06:59 Intake Total 5626 5328 Output Total 1250 2175 Balance 4376 3153 Weight 170 lb 170 lb Intake: IV Fluids 5516 2816 LR 1300 NS (0.9%) 1956 758 IVPB 110 212 ABX - PIPERACILLIN 110 106 Oral 0 2300 Output: Urine 1250 2175 Other: Date of Last Bowel 7/6 Movement PEX:Comfortable Lungs are clear Abd is soft and slightly distended. Bowel sounds are present. Incisions are clean and dry Ext without edema Assessment: POD#1 s/p lap choly for acute cholecystitis--doing well Plan: D/C home today No antibiotics Follow up in office Instructions given.
[2018-03-22 09:16] VITALS: BP 136/69
== END 2018-03-22 09:32 | disposition home or self-care (01) | DRG 419 ==
LOC: ED 06:19 → SSU 14:13 → OBSVTOIN 03-21 09:00
PROVIDERS: ADMIT Surgery; ATTEND Surgery
PROC: 0FT44ZZ Resection of Gallbladder, Percutaneous Endoscopic Approach (ICD-10-PCS; principal; 2018-03-21 08:07)
DX: K81.0 Acute cholecystitis (principal)
CPT/HCPCS: 36415; 76705; 78226; 80053; 81003; 82150; 83605; 83690; 83735; 85025; 85610; 85730; 86140; 87040; 88304; 93005; 99284; A9270-GY; A9537; G0378; J1100; J1170; J1885; J2250; J2270; J2405; J2543; J2704; J2710; J3010